=== PATIENT | male | born 1985 | race Caucasian/White ===

== ENCOUNTER 2022-11-05 21:01 | Inpatient (IN) | payer OTHER ==
[~2022-11-05] VITALS: Ht 170.2 cm; Wt 72.5 kg
[2022-11-05] MEDS ORDERED: AMLO-363 PO (21:24)
[2022-11-05] MEDS ORDERED: PREG75 PO (21:24)
[2022-11-05] MEDS ORDERED: ASPI-1450 PO (21:25)
[2022-11-05] MEDS ORDERED: HydrALAZINE HCL 20 MG/ML VIAL IVP ONE (21:30)
[2022-11-05] MEDS ORDERED: LORazepam 2 MG/ML VIAL IVP ONE (21:30)
[2022-11-05 21:59] LABS: BASOPHILS % (AUTO) 0.3 % (0.0-2.0); EOSINOPHILS % (AUTO) 0.3 % (1.0-6.0); HEMATOCRIT 37.5 % (41-53); HEMOGLOBIN 13.4 g/dL (13.5-17.5); LYMPHOCYTES # (AUTO) 1.2 K/uL (1.0-4.8); LYMPHOCYTES % (AUTO) 9.2 % (22.0-44.0); MEAN CORPUSCULAR HEMOGLOBIN 31.7 pg (26.0-34.0); MEAN CORPUSCULAR HGB CONC 35.6 G/dL (31.0-37.0); MEAN CORPUSCULAR VOLUME 89 fL (80-100); MONOCYTES # (AUTO) 1.1 K/uL (0.1-1.0); MONOCYTES % (AUTO) 8.3 % (2.0-9.0); NEUTROPHILS # (AUTO) 10.5 K/uL (1.8-7.7); NEUTROPHILS % (AUTO) 81.9 % (40.0-70.0); PLATELET COUNT (AUTO) 182 K/uL (150-450); RED BLOOD CELL COUNT(AUTO) 4.21 MIL/uL (4.50-5.90); RED CELL DISTRIBUTION WIDTH 14.1 % (11.5-14.5)
[2022-11-05 22:10] LABS: COVID AG,FIA SOURCE NASAL SWAB
[2022-11-05] MEDS: AmLODIPine BESYLATE 10 MG TABLET PO SCH (22:13)
[2022-11-05] MEDS ORDERED: ACETAMINOPHEN 325 MG TABLET PO PRN (22:15)
[2022-11-05] MEDS ORDERED: OxyCODONE HCL/ACETAMINOPHEN 5-325 MG TABLET PO PRN (22:15)
[2022-11-05] MEDS ORDERED: HydrALAZINE HCL 20 MG/ML VIAL IVP PRN (22:15)
[2022-11-05] MEDS ORDERED: ONDANSETRON HCL 4 MG/2 ML VIAL IVP PRN (22:15)
[2022-11-05] MEDS ORDERED: ZOLPIDEM TARTRATE 5 MG TABLET PO PRN (22:15)
[2022-11-05] MEDS ORDERED: MAGNESIUM HYDROXIDE SUSPENSION 30 ML UDCUP PO PRN (22:15)
[2022-11-05 22:19] LABS: APPEARANCE,URINE CLEAR (CLEAR); BILIRUBIN,URINE NEGATIVE (NEGATIVE); GLUCOSE, URINE (UA) NEGATIVE (NEGATIVE); KETONES,URINE NEGATIVE (NEGATIVE); LEUKOCYTE ESTERASE ,URINE NEGATIVE (NEGATIVE); NITRATE,URINE NEGATIVE (NEGATIVE); OCCULT BLOOD,URINE NEGATIVE (NEGATIVE); PH,URINE 7.5 (5.0-8.0); UROBILINOGEN,URINE <=1.0 mg/dL (<=1.0)
[2022-11-05 22:19] LABS: CALCIUM, TOTAL 8.6 mg/dL (8.8-10.5); CREATININE 1.64 mg/dL (0.60-1.30); POTASSIUM 3.1 mmol/L (3.5-5.1)
[2022-11-05 22:20] LABS: PROTEIN,URINE NEGATIVE (NEGATIVE)
[2022-11-05 22:24] LABS: ALBUMIN 4.6 g/dL (3.4-5.0); BILIRUBIN,TOTAL 0.9 mg/dL (0.1-1.0); TOTAL PROTEIN, SERUM 8.1 g/dL (6.4-8.2)
[2022-11-05 22:24] LABS: AMPHET/METH SCREEN,URINE NEGATIVE (NEGATIVE); BARBITURATE SCREEN, URINE NEGATIVE (NEGATIVE); BENZODIAZEPINES SCREEN,URINE NEGATIVE (NEGATIVE); CANNABINOID SCREEN,URINE NEGATIVE (NEGATIVE); COCAINE SCREEN,URINE NEGATIVE (NEGATIVE); METHADONE SCREEN, URINE NEGATIVE (NEGATIVE); OPIATE SCREEN,URINE NEGATIVE (NEGATIVE); PHENCYCLIDINE SCREEN,URINE NEGATIVE (NEGATIVE)
[2022-11-05] MEDS ORDERED: POTASSIUM CHLORIDE 20 MEQ ER TABLET PO ONE (22:30)
[2022-11-05] MEDS ORDERED: SODIUM CHLORIDE 0.9% 1,000 ML IV ONE (22:30)
[2022-11-05] MEDS ORDERED: CloNIDine HCL 0.1 MG TABLET PO PRN (22:30)
[2022-11-05] MEDS: LOSARTAN POTASSIUM 50 MG TABLET PO SCH (22:40)
[2022-11-05 22:41] LABS: PROTHROMBIN TIME 10.4 SEC (9.4-11.6)
[2022-11-05] MEDS ORDERED: ASPIRIN 325 MG TABLET PO ONE (23:00)
[2022-11-06 02:14] VITALS: BP 152/103
[2022-11-06 05:27] VITALS: BP 158/103
[2022-11-06 06:14] LABS: BASOPHILS % (AUTO) 0.6 % (0.0-2.0); EOSINOPHILS % (AUTO) 0.4 % (1.0-6.0); HEMATOCRIT 34.6 % (41-53); HEMOGLOBIN 12.6 g/dL (13.5-17.5); LYMPHOCYTES % (AUTO) 24.7 % (22.0-44.0); MEAN CORPUSCULAR HEMOGLOBIN 32.1 pg (26.0-34.0); MEAN CORPUSCULAR HGB CONC 36.3 G/dL (31.0-37.0); MEAN CORPUSCULAR VOLUME 88 fL (80-100); MONOCYTES # (AUTO) 0.9 K/uL (0.1-1.0); MONOCYTES % (AUTO) 10.6 % (2.0-9.0); NEUTROPHILS # (AUTO) 5.3 K/uL (1.8-7.7); NEUTROPHILS % (AUTO) 63.7 % (40.0-70.0); PLATELET COUNT (AUTO) 175 K/uL (150-450); RED BLOOD CELL COUNT(AUTO) 3.92 MIL/uL (4.50-5.90)
[2022-11-06 07:38] LABS: ALBUMIN 4.1 g/dL (3.4-5.0); BILIRUBIN,TOTAL 0.5 mg/dL (0.1-1.0); CALCIUM, TOTAL 8.3 mg/dL (8.8-10.5); CREATININE 1.42 mg/dL (0.60-1.30); TOTAL PROTEIN, SERUM 7.3 g/dL (6.4-8.2)
[2022-11-06 07:40] VITALS: BP 147/81
[2022-11-06 07:41] LABS: POTASSIUM 2.8 mmol/L (3.5-5.1)
[2022-11-06] MEDS ORDERED: POTASSIUM CHLORIDE 20 MEQ ER TABLET PO ONE ×2 (08:30→14:15)
[2022-11-06] MEDS ORDERED: CARVEDILOL 6.25 MG TABLET PO SCH (09:00)
[2022-11-06] MEDS: FAMOTIDINE 20 MG TABLET PO SCH (09:01)
[2022-11-06] MEDS: DOCUSATE SODIUM 100 MG CAPSULE PO SCH ×2 (09:01→20:43)
[2022-11-06] MEDS: ASPIRIN 81 MG CHEWABLE TABLET PO SCH (09:01)
[2022-11-06] MEDS: LOSARTAN POTASSIUM 50 MG TABLET PO SCH ×2 (09:01→20:41)
[2022-11-06 09:57] LABS: THYROID STIMULATING HORMONE 1.35 uIU/mL (0.36-3.74)
[2022-11-06 12:15] VITALS: BP 151/92
[2022-11-06 16:20] VITALS: BP 132/95
[2022-11-06 20:10] VITALS: BP 148/97
[2022-11-06] MEDS: CARVEDILOL 12.5 MG TABLET PO SCH (20:41)
[2022-11-06] MEDS: AmLODIPine BESYLATE 10 MG TABLET PO SCH (20:41)
[2022-11-07 00:30] VITALS: BP 121/76
[2022-11-07 04:20] VITALS: BP 133/90
[2022-11-07 06:34] LABS: ANION GAP 9 mmol/L (8-16); CARBON DIOXIDE 27 mmol/L (22-29); CHLORIDE 107 mmol/L (98-107); CREATININE 1.18 mg/dL (0.60-1.30); GLUCOSE,RANDOM 93 mg/dL (70-110); POTASSIUM 3.3 mmol/L (3.5-5.1); SODIUM SERUM 143 mmol/L (136-145); UREA NITROGEN, BLOOD 21 mg/dL (7-18)
[2022-11-07 06:42] LABS: GLOMERULAR FILTR. RATE CALC > 60 mL/min (>60)
[2022-11-07 07:42] VITALS: BP 135/90
[2022-11-07] MEDS: DOCUSATE SODIUM 100 MG CAPSULE PO SCH (09:19)
[2022-11-07] MEDS: LOSARTAN POTASSIUM 50 MG TABLET PO SCH (09:19)
[2022-11-07] MEDS: FAMOTIDINE 20 MG TABLET PO SCH (09:19)
[2022-11-07] MEDS: ASPIRIN 81 MG CHEWABLE TABLET PO SCH (09:19)
[2022-11-07] MEDS: CARVEDILOL 12.5 MG TABLET PO SCH (09:20)
[2022-11-07 11:07] VITALS: BP 147/99
[2022-11-07] MEDS ORDERED: LOSA-381 PO (11:07)
[2022-11-07] MEDS ORDERED: CARV12 PO (11:07)
[2022-11-07] MEDS ORDERED: AMLO-258 PO (11:08)
== END 2022-11-07 13:30 | disposition home or self-care (01) | DRG 281 ==
LOC: EMS 21:04 → 5N 23:00
PROVIDERS: ADMIT Internal Medicine; ATTEND Internal Medicine
DX: I16.1 Hypertensive emergency (principal); I21.A1 Myocardial infarction type 2; N17.9 Acute kidney failure, unspecified; E87.6 Hypokalemia; N18.9 Chronic kidney disease, unspecified; E11.22 Type 2 diabetes mellitus with diabetic chronic kidney disease; E78.00 Pure hypercholesterolemia, unspecified; I13.10 Hypertensive heart and chronic kidney disease without heart failure, with stage 1 through stage 4 chronic kidney disease, or unspecified chronic kidney disease; F41.9 Anxiety disorder, unspecified; Z91.14 Patient's other noncompliance with medication regimen; Z91.199 Patient's noncompliance with other medical treatment and regimen due to unspecified reason; Z79.82 Long term (current) use of aspirin; Z79.899 Other long term (current) drug therapy
CPT/HCPCS: 70450; 71045; 80048; 80053; 80307; 81003; 82550; 83880; 84132; 84443; 84484; 85025; 85610; 85730; 93005; 93306; 99291; J0360; J2060; J7030; 36415-L1; 36415-TC